=== PATIENT | female | born 2005 | race Caucasian/White ===

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

== ENCOUNTER 2024-04-19 09:32 | Emergency (ER) | payer MEDICAID, SELFPAY ==
[2024-04-19 09:47] VITALS: BP 114/49; PULSE 86; RESP 18; TEMP 36.8; O2SAT 97; BMI 34.3
--- NOTE | 2024-04-19 10:10 | ED.URI ---
HPI - URI/Sore Throat General Chief Complaint: Upper Respiratory Symptoms Stated Complaint: Cough Time Seen by Provider: 04/19/24 10:04 Source: patient Mode of arrival: ambulatory Limitations: no limitations History of Present Illness ED Provider: William Alford PA-C HPI Narrative: 18-year-old female with no medical history presents to the ER for evaluation of sore throat and cough for the last 1 week. She reports over week ago she got sick with body aches, chills, cough, sore throat. She is starting to feel better. She took her at home COVID test yesterday that was slightly positive. She is starting a new job today. Only remaining symptom is a mild sore throat and slight cough. Overall she is feeling better. She presents today with her sister and nephew who also tested positive for COVID yesterday. She denies any difficulty breathing, chest pain, abdominal pain, nausea, vomiting, diarrhea. No current fevers MD elicited complaint: cough and sore throat Onset (ago): week(s) (1.5) Consistency: improved Exacerbating factors: nothing Relieving factors: nothing Associated symptoms: denies other symptoms Treatments prior to arrival: none Related Data Previous Rx's ?Medication ?Instructions ?Recorded ibuprofen 600 mg tablet 600 mg PO Q6H PRN pain #20 tabs 09/27/21 amoxicillin 875 mg-potassium 1 tab PO BID 7 days #14 tabs 06/13/22 clavulanate 125 mg tablet amoxicillin 875 mg-potassium 1 tab PO BID 7 days #14 tabs 08/11/22 clavulanate 125 mg tablet Allergies Allergy/AdvReac Type Severity Reaction Status Date / Time No Known Allergies Allergy Verified 04/19/24 09:50 Review of Systems Review of Systems: Yes all other systems are reviewed and are negative [facility] Past Medical History Medical History ADHD Asthma Social History Social History Advance Directives: No Do you have a plan to hurt others: No Plan Physical Exam Vital Signs: Vital Signs: Last Vital Signs Temp 98.3 F 04/19/24 09:47 Pulse 86 04/19/24 09:47 Resp 18 04/19/24 09:47 BP 114/49 L 04/19/24 09:47 Pulse Ox 97 04/19/24 09:47 O2 Del Method Room Air 04/19/24 09:47 BMI result Body Mass Index 34.3 Appearance: Alert. Oriented X3. No acute distress. Head: normocephalic, atraumatic. Eyes: Pupils equal, round and reactive to light. ENT: Pharynx normal. No tonsillar swelling or exudate. Neck: Normal inspection. Neck supple. CVS: Normal heart rate and rhythm. Pulses normal. Respiratory: No respiratory distress. Breath sounds normal. Abdomen: Soft and nontender. +BS x4 Skin: Skin warm and dry. Normal skin color. Normal skin turgor. No rashes. Extremities: No lower extremity edema. No joint swelling. Neuro/psych: Oriented X 3. Grossly normal, nonfocal Normal speech and cognition. Medical Decision Making Medical Decision Making [facility] Narrative: 18-year-old female with no medical problems presents to the ER for evaluation after she was found to be COVID positive at home. Her symptoms are mild, overall improving. She has no fevers. Her examination is unremarkable and her vital signs are stable. Strep test is negative today. She has been sick for over a week. Her symptoms are improving. She is stable to go back to work as long as she is wearing a mask. Stable for discharge home Differential Diagnosis Differential Diagnoses: The differential diagnosis associated with the presentation includes strep, covid, flu, rsv, other viral syndrome, bronchitis, pneumonia, no evidence of peritonsillar abcsess or retropharyngeal abscess Lab Data [facility] Lab Attestation statement: I reviewed the patient's lab results. Labs: Lab Results 04/19/24 Range/Units 09:57 COVID-19 (GINA) Positive A (Negative) COVID-19 Clin Com See Note Independent Historian Clinical information obtained from an independent historian. History obtained from or confirmed by: Other External Record Review External record reviewed: Prior outpatient labs Tests considered The following testing was considered but not selected: Consider chest x-ray to assess for viral pneumonia versus bacterial pneumonia however symptoms are mild and overall improving, low clinical suspicion for pneumonia Prescription Management I considered prescription management with: Pain Medication and Antiviral Critical Care Time Critical Care Time Critical Care Time: No Discharge Plan Discharge Clinical Impression: COVID-19 Patient Disposition: Home, Self-Care Instructions: COVID-19 (Coronavirus Disease 2019) (ED) Additional Instructions: You were found to be COVID-19 POSITIVE today. Your exam and oxygen levels were normal. Rest. Drink plenty of fluids. Do not go out in public while you are not feeling well. Take over the counter cold/flu medications as needed for your symptoms. Take Tylenol and/or Motrin as needed for fevers and body aches. Follow up with your doctor as needed. If you develop new or worsening symptoms call 911 or come back to the ER for further evaluation. Prescriptions: No Action amoxicillin-pot clavulanate 875-125 mg tablet 1 tab PO BID 7 Days Qty: 14 0RF ibuprofen 600 mg tablet 600 mg PO Q6H PRN (Reason: pain) Qty: 20 0RF amoxicillin-pot clavulanate 875-125 mg tablet 1 tab PO BID 7 Days Qty: 14 0RF Stand Alone Forms: Work/School Release Print Language: Romansh
[2024-04-19 10:33] LABS: COVID-19 Test Positive (Negative); IDNOW Serial# 58CA691E
[2024-04-19 10:49] VITALS: BP 110/71; PULSE 75; RESP 18; O2SAT 99
[2024-04-19 10:49] LABS: IDNOW Serial# 08D9AD1C; Influenza A Negative (Negative); Influenza B2 Negative (Negative)
[2024-04-19 11:14] VITALS: BP 110/71; PULSE 75; RESP 18; TEMP -17.7; TEMP 0; O2SAT 99
== END 2024-04-19 11:14 | disposition home or self-care (01) ==
PROVIDERS: Emergency Provider Emergency Medicine Emergency Medical Services
DX: U07.1 COVID-19 (principal); J02.9 Acute pharyngitis, unspecified; M79.10 Myalgia, unspecified site; R05.9 Cough, unspecified
CPT/HCPCS: 87502; 87635; 99283

== ENCOUNTER 2025-06-09 11:00 | Outpatient (REF) | payer MEDICAID, SELFPAY ==
[2025-06-09 13:01] LABS: MANUAL DIFF FLAG NO
[2025-06-09 13:50] LABS: Hematocrit 34.1 % (37.0-47.0); Hemoglobin 10.2 g/dl (12.0-16.0); Imm Gran Abs Auto 0.02 X10*3/uL (0.00-0.03); Imm Gran Pct Auto 0.3 % (0.0-0.4); Lymphocytes Absolute Auto 2.8 X10*3/uL (1.2-4.9); Mean Corpuscular HGB Conc 29.9 g/dl (31.0-35.0); Mean Corpuscular Hemoglobin 21.7 pg (27.0-33.0); Mean Corpuscular Volume 72.6 fL (80.0-98.0); NRBC Abs Auto 0.000 X10*3/uL (0.0-0.012); NRBC Pct Auto 0.0 /100WBC (0.0-0.2); Platelet Count 397 X10*3/uL (160-400); Red Blood Count 4.70 X10*6/uL (4.20-5.50); White Blood Count 6.8 X10*3/uL (4.8-10.8)
[2025-06-09 14:26] LABS: Anion Gap 9 (12-20); Blood Urea Nitrogen 10 mg/dL (9-16); Calcium 8.9 mg/dL (8.4-10.2); Carbon Dioxide 24 mmol/L (22-29); Chloride 110 mmol/L (96-108); Cholesterol 126 mg/dL (<200); Potassium 4.0 mmol/L (3.3-5.1); Sodium 139 mmol/L (135-145); Triglycerides 56 mg/dL (<150)
[2025-06-09 14:36] LABS: Estimated Glomerular Filt Rate > 60; HDL Cholesterol 33 mg/dL (>40); Iron 16 mcg/dL (30-160); Percent Iron Saturation 5 % (15-50); Total Iron Binding Capacity 338 mcg/dL (228-428); Unsaturated Iron Binding 322 ug/dL
[2025-06-09 14:49] LABS: Ferritin 5 ng/mL (10-122)
[2025-06-10 09:25] LABS: Syphilis Screen Nonreactive (Nonreactive)
[2025-06-10 10:58] LABS: HBS Num1 2.31 mIU/mL (0-7.99); HBc Num1 0.08 S/CO (0.00-0.79); HBsAGNum1 0.52 S/CO (0.00-0.99); HIV Num 1 0.05 S/CO (0.00-0.99); Hepatitis B Surface Antigen Negative (Negative); ~HepC Num1 0.15 S/CO (0.00-0.79); ~Hepatitis B Surface Antibody NONREACTIVE (Nonreactive); ~Hepatitis C Antibody Nonreactive (Nonreactive)
[2025-06-10 12:02] LABS: Bacterial Vaginosis PCR NEGATIVE (Negative); Candida Group PCR NOT DETECTED (Not Detect); Candida glab krusei PCR NOT DETECTED (Not Detect); Trichomonas vaginalis PCR NOT DETECTED (Not Detect)
[2025-06-10 12:35] LABS: CT PCR NOT DETECTED (Not Detect.); NG PCR NOT DETECTED (Not Detect.)
== END 2025-06-09 11:01 | disposition home or self-care (01) ==
LOC: HO.HHCL 11:00
PROVIDERS: PCP Nurse Practitioner; Visit Provider Nurse Practitioner
DX: E66.812 Obesity, class 2 (principal); Z86.2 Personal history of diseases of the blood and blood-forming organs and certain disorders involving the immune mechanism; Z11.4 Encounter for screening for human immunodeficiency virus [HIV]; Z20.2 Contact with and (suspected) exposure to infections with a predominantly sexual mode of transmission; Z68.35 Body mass index [BMI] 35.0-35.9, adult
CPT/HCPCS: 36415; 80048; 80061; 81515; 82728; 83540; 84443; 85025; 86704; 86706; 86780; 86803; 87340; 87389; 87491; 87591